=== PATIENT | male | born 1970 ===

== ENCOUNTER 2022-11-07 10:14 | Outpatient (CLI) | payer BC, SELFPAY ==
--- NOTE | ~2022-11-07 | US_ITS ---
EXAMINATION: US scrotum doppler DATE: 11/07/2022 10:49 INDICATION: Left testicular pain TECHNIQUE: Testicular sonogram utilizing grayscale and Doppler COMPARISON: None. FINDINGS: The right testis measures 5.5 x 3.0 x 3.7 cm. The left testis measures 5.1 x 2.9 x 3.6 cm. There is normal vascular flow to both testes. The right epididymis is normal with normal vascular keila w. The body and tail of the left epididymis are mildly enlarged compared to the right. There is no va ricocele or hydrocele. IMPRESSION: 1. Mild enlargement in the body and tail of the left epididymis compared to the right of unclear sign ificance or etiology. Reviewed, dictated and finalized at location F. ENT FINANCIAL REPRESENTATIVE IMPRESSION: 1. Mild enlargement in the body and tail of the left epididymis compared to the right of unclear significance or etiology.
== END 2022-11-07 10:15 ==
PROVIDERS: PCP Family Medicine; Visit Provider Urology
DX: N50.812 Left testicular pain (principal)
CPT/HCPCS: 76870; 93976